=== PATIENT | female | born 1985 | race African-American/Black ===

== ENCOUNTER 2017-03-10 11:06 | Emergency (ER) | payer BC ==
[~2017-03-10] VITALS: Ht 182.9 cm; Wt 147.8 kg
[2017-03-10 11:25] LABS: MCH 25.7 PG (29.0-34.0); MCHC 32.7 G/DL (30.0-36.0); MCV 78.7 FL (83-99); PLATELET COUNT 284 K/uL (156-360); RBC DIS.WIDTH-CV 14.5 % (11.8-14.6); RBC DIS.WIDTH-SD 41.4 % (39-53); WHITE BLOOD COUNT 7.3 K/uL (4.1-10.2)
[2017-03-10 12:01] LABS: QUANTITATIVE HCG < 4.0 MIU/ML
[2017-03-10 12:10] LABS: CHLORIDE 108 mEq/L (99-109); POTASSIUM 3.5 mEq/L (3.7-5.4); SODIUM 140 mEq/L (136-147)
[2017-03-10 12:12] LABS: GLUCOSE 88 mg/dL (70-99)
[2017-03-10 12:13] LABS: ANION GAP 8 MEQ/L (2-14)
[2017-03-10 12:14] LABS: TOTAL BILIRUBIN 0.5 mg/dL (0.0-1.0)
[2017-03-10 12:16] LABS: ALKALINE PHOSPHATASE 87 IU/L (3-129)
[2017-03-10 12:17] LABS: UREA NITROGEN (BUN) 11 mg/dL (9-23)
[2017-03-10 12:19] LABS: GFR ESTIMATE (CALCULATED) > 59 mL/min/
[2017-03-10 13:26] LABS: ADD MIUA? YES; BILIRUBIN NEGATIVE; BLOOD LARGE; COLOR RED ((YELLOW)); GLUCOSE (STRIP) NEGATIVE; KETONES NEGATIVE; LEUKOCYTES TRACE; NITRITE NEGATIVE; PROTEIN (STRIP) 100; UROBILINOGEN 0.2 MG/DL (0.2-1.0)
[2017-03-10] MEDS ORDERED: ZOFRAN ODT4 MG PO (13:31)
[2017-03-10] MEDS ORDERED: BENTYL10 MG PO (13:31)
[2017-03-10 13:37] LABS: BACTERIA 2+ /HPF; CALCIUM OXALATE CRYSTALS 4+ /HPF; EPITHELIAL CELLS 1+ /HPF; MUCUS 2+ /LPF; RED BLOOD CELLS TNTC /HPF (0-5); UCUL ADDED? YES
[2017-03-10 13:41] VITALS: BP 121/77
[2017-03-11] MEDS ORDERED: NORETHINDRONE AC5 MG PO (12:00)
[2017-03-11] MEDS ORDERED: MICROGESTIN1 EACH PO (14:20)
== END 2017-03-10 13:42 | disposition home or self-care (01) ==
LOC: EME 11:06
DX: N93.9 Abnormal uterine and vaginal bleeding, unspecified (principal); R10.2 Pelvic and perineal pain
CPT/HCPCS: 76856; 80053; 81003; 84702; 85027; 87086; 99281; 99284

== ENCOUNTER 2017-03-11 08:16 | Emergency (ER) | payer BC ==
[~2017-03-11] VITALS: Ht 182.9 cm; Wt 146.7 kg
[~2017-03-11 08:16] MED LIST: BENTYL10 MG PO; ZOFRAN ODT4 MG PO
[2017-03-11 11:36] LABS: HEMATOCRIT 37.8 % (36.0-46.0); MCH 25.5 PG (29.0-34.0); MCHC 32.5 G/DL (30.0-36.0); MCV 78.4 FL (83-99); MEAN PLAT.VOLUME 10.2 uM^3 (9.5-12.4); PLATELET COUNT 296 K/uL (156-360); RBC DIS.WIDTH-CV 14.3 % (11.8-14.6); RBC DIS.WIDTH-SD 40.2 % (39-53); RED BLOOD COUNT 4.82 M/uL (3.80-5.20); WHITE BLOOD COUNT 9.6 K/uL (4.1-10.2)
[2017-03-11 11:44] LABS: CHLORIDE 110 mEq/L (99-109); POTASSIUM 4.1 mEq/L (3.7-5.4); SODIUM 137 mEq/L (136-147)
[2017-03-11 11:46] LABS: GLUCOSE 87 mg/dL (70-99)
[2017-03-11 11:47] LABS: ANION GAP 4 MEQ/L (2-14)
[2017-03-11 11:49] LABS: GFR ESTIMATE (CALCULATED) > 59 mL/min/
[2017-03-11 11:50] LABS: UREA NITROGEN (BUN) 9 mg/dL (9-23)
[2017-03-11] MEDS ORDERED: NORETHINDRONE AC5 MG PO (12:00)
[2017-03-11] MEDS ORDERED: MICROGESTIN1 EACH PO (14:20)
[2017-03-11 14:36] VITALS: BP 110/85
== END 2017-03-11 14:36 | disposition home or self-care (01) ==
LOC: EME 08:16
PROVIDERS: Emergency Medicine
DX: N93.8 Other specified abnormal uterine and vaginal bleeding (principal); R10.2 Pelvic and perineal pain; F17.200 Nicotine dependence, unspecified, uncomplicated; F12.90 Cannabis use, unspecified, uncomplicated
CPT/HCPCS: 80048; 85027; 99281; 99285; J7030

== ENCOUNTER 2017-08-21 13:26 | Emergency (ER) | payer BC ==
[~2017-08-21] VITALS: Ht 182.9 cm; Wt 150.4 kg
[~2017-08-21 13:26] MED LIST changes: +MICROGESTIN1 EACH PO; +NORETHINDRONE AC5 MG PO
[2017-08-21 13:55] LABS: HEMATOCRIT 33.9 % (36.0-46.0); HEMOGLOBIN 10.3 G/DL (11.9-15.5); MCHC 30.4 G/DL (30.0-36.0); MCV 69.2 FL (83-99); PLATELET COUNT 301 K/uL (156-360); RBC DIS.WIDTH-CV 16.8 % (11.8-14.6); RBC DIS.WIDTH-SD 41.4 % (39-53); WHITE BLOOD COUNT 10.2 K/uL (4.1-10.2)
[2017-08-21 13:56] LABS: ALBUMIN 3.7 g/dL (3.2-4.8)
[2017-08-21 13:57] LABS: CHLORIDE 108 mEq/L (99-109); SODIUM 140 mEq/L (136-147)
[2017-08-21 13:59] LABS: GLUCOSE 113 mg/dL (70-99); TOTAL PROTEIN 6.9 g/dL (6.4-8.3)
[2017-08-21 14:01] LABS: TOTAL BILIRUBIN 0.5 mg/dL (0.0-1.0)
[2017-08-21 14:02] LABS: ALKALINE PHOSPHATASE 100 IU/L (3-129)
[2017-08-21 14:03] LABS: CREATININE 0.9 mg/dL (0.6-1.3); GFR ESTIMATE (CALCULATED) > 59 mL/min/
[2017-08-21 14:04] LABS: AST (GOT) 15 IU/L (2-34); UREA NITROGEN (BUN) 8 mg/dL (9-23)
[2017-08-21 14:06] LABS: ALT (GPT) 22 IU/L (3-49)
[2017-08-21 14:14] LABS: QUANTITATIVE HCG < 4.0 MIU/ML
[2017-08-21 14:58] LABS: APPEARANCE CLOUDY ((CLEAR)); BILIRUBIN NEGATIVE; BLOOD LARGE; COLOR YELLOW ((YELLOW)); GLUCOSE (STRIP) NEGATIVE; KETONES NEGATIVE; LEUKOCYTES MODERATE; NITRITE POSITIVE; PROTEIN (STRIP) 100; SPECIFIC GRAVITY 1.015 (1.000-1.030); UROBILINOGEN 0.2 MG/DL (0.2-1.0)
[2017-08-21 15:15] LABS: RED BLOOD CELLS TNTC /HPF (0-5)
[2017-08-21 15:17] LABS: EPITHELIAL CELLS 3+ /HPF; MUCUS NONE SEEN /LPF; WHITE BLOOD CELLS TNTC /HPF (0-5)
[2017-08-21 15:18] LABS: BACTERIA 1+ /HPF; UCUL ADDED? YES
[2017-08-21] MEDS ORDERED: KEFLEX500 MG PO (15:22)
[2017-08-21] MEDS ORDERED: PYRIDIUM200 MG PO (15:22)
[2017-08-21 16:00] VITALS: BP 135/88
== END 2017-08-21 16:01 | disposition home or self-care (01) ==
LOC: EME 13:26
DX: N39.0 Urinary tract infection, site not specified (principal); F17.200 Nicotine dependence, unspecified, uncomplicated
CPT/HCPCS: 80053; 81003; 84702; 85027; 87077; 87086; 87186; 99281; 99284